=== PATIENT | male | born 1940 ===

== ENCOUNTER 2023-03-22 17:57 | Inpatient (IN) | payer MEDICARE, OTHER ==
[~2023-03-22] VITALS: Ht 182.9 cm; Wt 68.0 kg
[2023-03-22 19:55] LABS: HEMATOCRIT 37.3 % (36.7-47.1); WHITE BLOOD COUNT (AUTO) 3.9 K/uL (3.6-10.2)
[2023-03-22 20:02] LABS: EOSINOPHILS # (AUTO) 0.1 K/uL (0.0-0.7); EOSINOPHILS % (AUTO) 2.6 % (0.0-7.0); HEMOGLOBIN 12.6 g/dL (12.5-16.3); LYMPHOCYTES # (AUTO) 0.6 K/uL (0.8-4.8); LYMPHOCYTES % (AUTO) 14.9 % (20.5-51.5); MEAN CORPUSCULAR HEMOGLOBIN 32.1 uug (23.8-33.4); MEAN CORPUSCULAR HGB CONC 34 g/dL (32.5-36.3); MEAN CORPUSCULAR VOLUME 94.8 fL (73.0-96.2); MONOCYTES # (AUTO) 0.4 K/uL (0.1-1.30); MONOCYTES % (AUTO) 9.5 % (0.0-11.0); NEUTROPHILS # (AUTO) 2.8 K/uL (1.8-8.9); PLATELET COUNT (AUTO) 171 K/uL (152-348); RED BLOOD CELL COUNT(AUTO) 3.93 MIL/uL (4.06-5.63); RED CELL DISTRIBUTION WIDTH 14.3 % (12.1-16.2)
[2023-03-22 20:05] LABS: DIFFERENTIAL COMMENT 1
[2023-03-22 20:06] LABS: ALANINE AMINOTRANSFERASE 16 U/L (16-63); ALBUMIN 3.3 g/dL (3.4-5.0); ALKALINE PHOSPHATASE 68 U/L (50-136); ASPARTATE AMINOTRANSFERASE 5 U/L (15-37); BILIRUBIN,DIRECT 0.2 mg/dL (0.0-0.2); BILIRUBIN,TOTAL 0.6 mg/dL (0.2-1.0); CALCIUM 8.8 mg/dL (8.5-10.1); CARBON DIOXIDE 27 mmol/L (21-32); CHLORIDE 105 mmol/L (98-107); CREATININE 0.8 mg/dL (0.6-1.3); ETHANOL < 3 MG/DL (0-10); GLUCOSE 92 mg/dL (74-106); SODIUM SERUM 141 mmol/L (136-145); TOTAL PROTEIN, SERUM 6.2 g/dL (6.4-8.2); UREA NITROGEN, BLOOD 21 mg/dL (7-18)
[2023-03-22 20:07] LABS: ACETAMINOPHEN < 2.0 ug/mL (10-30)
[2023-03-22] MEDS ORDERED: QUETIAPINE FUMARATE 25 MG TABLET ONE ×2 (21:43→21:46)
[2023-03-22] MEDS ORDERED: QUETIAPINE FUMARATE 25 MG TABLET PO ONE (21:45)
[2023-03-22 22:44] LABS: *BILIRUBIN,URIN NEGATIVE (NEGATIVE); *BLOOD, URINE NEGATIVE (NEGATIVE); *CLARITY,URINE CLEAR (CLEAR); *COLOR,URINE YELLOW (YELLOW); *KETONES,URINE NEGATIVE (NEGATIVE); *PROTEIN,URINE NEGATIVE (NEGATIVE); LEUKOCYTE ESTERASE ,URINE NEGATIVE (NEGATIVE); NITRITE, URINE NEGATIVE (NEGATIVE); UGLUCOSE NEGATIVE (NEGATIVE)
[2023-03-22 23:05] LABS: *AMPHETAMINE, URINE NEGATIVE (NEGATIVE); *BARBITURATE, URINE NEGATIVE (NEGATIVE); *BENZODIAZEPINE, URINE NEGATIVE (NEGATIVE); *CANNABINOID, URINE NEGATIVE (NEGATIVE); *COCCAINE, URINE NEGATIVE (NEGATIVE); *OPIATE, URINE NEGATIVE (NEGATIVE); *PHENCYCLIDINE SCREEN,URINE NEGATIVE (NEGATIVE); FENTANYL, URINE NEGATIVE (NEGATIVE)
[2023-03-23] MEDS ORDERED: LORAZEPAM 0.5 MG TABLET PO ONE (00:15)
[2023-03-23] MEDS ORDERED: LORAZEPAM 1 MG TABLET ONE (00:19)
[2023-03-23] MEDS ORDERED: MEMA10TA PO (01:02)
[2023-03-23] MEDS ORDERED: CHOL100062 PO (01:02)
[2023-03-23] MEDS ORDERED: QUET50TA24 PO (01:02)
[2023-03-23] MEDS ORDERED: RIVA1PAT TD (01:02)
[2023-03-23] MEDS ORDERED: ALLO100T PO (01:02)
[2023-03-23] MEDS ORDERED: PRAM0.253 PO (01:02)
[2023-03-23] MEDS ORDERED: MAGNESIUM HYDROXIDE 30 ML LIQUID UDC PO PRN (02:15)
[2023-03-23] MEDS ORDERED: MAG HYDROX/AL HYDROX/SIMETH 30 ML LIQUID UDC PO PRN (02:15)
[2023-03-23] MEDS ORDERED: BLOOD SUGAR DIAGNOSTIC 1 EACH STRIP VI ONE (02:15)
[2023-03-23] MEDS: LORAZEPAM 0.5 MG TABLET PO PRN ×3 (04:08→22:18)
[2023-03-23] MEDS ORDERED: ROSU10TA29 PO (05:31)
[2023-03-23 09:07] VITALS: BP 106/52; O2SAT 96
[2023-03-23] MEDS: risperiDONE 0.5 MG TABLET PO SCH ×2 (11:25→16:38)
[2023-03-23 15:32] VITALS: BP 113/66; TEMP 98.2; O2SAT 98
[2023-03-23 20:04] VITALS: BP 106/61; TEMP 98.2; O2SAT 98
[2023-03-23] MEDS: ATORVASTATIN 20 MG TABLET PO SCH (21:11)
[2023-03-23] MEDS: PRAMIPEXOLE 0.25 MG TABLET PO SCH (21:11)
[2023-03-23] MEDS: TEMAZEPAM 7.5 MG CAPSULE PO PRN (22:51)
[2023-03-24] MEDS: LORAZEPAM 0.5 MG TABLET PO PRN ×3 (05:22→20:50)
[2023-03-24 07:30] VITALS: BP 158/81; TEMP 97.4; O2SAT 100
[2023-03-24] MEDS: risperiDONE 0.5 MG TABLET PO SCH ×4 (08:16→20:50)
[2023-03-24] MEDS: CHOLECALCIFEROL 1,000 UNIT TABLET PO SCH (08:16)
[2023-03-24] MEDS: ALLOPURINOL 100 MG TABLET PO SCH (08:19)
[2023-03-24 08:37] LABS: THYROID STIMULATING HORMONE 2.789 mIU/mL (0.358-3.740)
[2023-03-24] MEDS: DIVALPROEX SPRINKLE 125 MG CAP.SPRINK PO SCH ×2 (13:08→16:44)
[2023-03-24 16:00] VITALS: BP 133/75; TEMP 97.5; O2SAT 98
[2023-03-24 20:47] VITALS: BP 90/48; TEMP 98; O2SAT 98
[2023-03-24] MEDS: ATORVASTATIN 20 MG TABLET PO SCH (20:50)
[2023-03-24] MEDS: PRAMIPEXOLE 0.25 MG TABLET PO SCH (20:51)
[2023-03-25 07:40] VITALS: BP 139/73; TEMP 97.7; O2SAT 96
[2023-03-25] MEDS: risperiDONE 0.5 MG TABLET PO SCH ×4 (09:11→21:27)
[2023-03-25] MEDS: ALLOPURINOL 100 MG TABLET PO SCH (09:11)
[2023-03-25] MEDS: CHOLECALCIFEROL 1,000 UNIT TABLET PO SCH (09:11)
[2023-03-25] MEDS: DIVALPROEX SPRINKLE 125 MG CAP.SPRINK PO SCH ×3 (09:12→16:55)
[2023-03-25] MEDS: LORAZEPAM 0.5 MG TABLET PO PRN ×2 (11:08→23:47)
[2023-03-25 15:02] VITALS: BP 106/83; TEMP 98.4; O2SAT 95
[2023-03-25 20:05] VITALS: BP 138/78; TEMP 98.2; O2SAT 96
[2023-03-25] MEDS: ATORVASTATIN 20 MG TABLET PO SCH (21:26)
[2023-03-25] MEDS: PRAMIPEXOLE 0.25 MG TABLET PO SCH (21:26)
[2023-03-26 07:59] VITALS: BP 109/77; TEMP 97.8; O2SAT 95
[2023-03-26] MEDS: DIVALPROEX SPRINKLE 125 MG CAP.SPRINK PO SCH ×3 (08:22→16:21)
[2023-03-26] MEDS: LORAZEPAM 0.5 MG TABLET PO PRN ×3 (08:22→20:46)
[2023-03-26] MEDS: CHOLECALCIFEROL 1,000 UNIT TABLET PO SCH (08:22)
[2023-03-26] MEDS: risperiDONE 0.5 MG TABLET PO SCH ×4 (08:22→20:46)
[2023-03-26] MEDS: ALLOPURINOL 100 MG TABLET PO SCH (08:29)
[2023-03-26] MEDS: BENZTROPINE MESYLATE 0.5 MG TABLET PO SCH ×2 (12:23→16:21)
[2023-03-26 15:32] VITALS: BP 112/64; TEMP 98.5; O2SAT 97
[2023-03-26 19:56] VITALS: BP 152/73; TEMP 98; O2SAT 98
[2023-03-26] MEDS: PRAMIPEXOLE 0.25 MG TABLET PO SCH (20:46)
[2023-03-26] MEDS: ATORVASTATIN 20 MG TABLET PO SCH (20:46)
[2023-03-27 07:46] VITALS: BP 149/72; TEMP 98.2; O2SAT 96
[2023-03-27] MEDS: ALLOPURINOL 100 MG TABLET PO SCH (08:07)
[2023-03-27] MEDS: CHOLECALCIFEROL 1,000 UNIT TABLET PO SCH (08:07)
[2023-03-27] MEDS: DIVALPROEX SPRINKLE 125 MG CAP.SPRINK PO SCH ×2 (08:07→17:28)
[2023-03-27] MEDS: risperiDONE 0.5 MG TABLET PO SCH ×4 (08:08→19:52)
[2023-03-27] MEDS: BENZTROPINE MESYLATE 0.5 MG TABLET PO SCH ×2 (08:08→17:28)
[2023-03-27 15:19] VITALS: BP 146/63; TEMP 98; O2SAT 96
[2023-03-27] MEDS: PRAMIPEXOLE 0.25 MG TABLET PO SCH (19:51)
[2023-03-27] MEDS: ACETAMINOPHEN 325 MG TABLET PO PRN (19:51)
[2023-03-27] MEDS: LORAZEPAM 0.5 MG TABLET PO PRN (19:52)
[2023-03-27] MEDS: ATORVASTATIN 20 MG TABLET PO SCH (19:52)
[2023-03-27] MEDS: REMEDY ESSENTIAL ZINC PASTE 113 GM TOP SCH (19:54)
[2023-03-27 20:00] VITALS: BP 139/60; TEMP 99.8; O2SAT 96
[2023-03-27 21:05] VITALS: TEMP 98.2
[2023-03-28] MEDS: LORAZEPAM 0.5 MG TABLET PO PRN ×3 (05:23→20:05)
[2023-03-28] MEDS: ACETAMINOPHEN 325 MG TABLET PO PRN (05:23)
[2023-03-28 08:41] VITALS: BP 117/57; TEMP 97.9; O2SAT 99
[2023-03-28] MEDS: DIVALPROEX SPRINKLE 125 MG CAP.SPRINK PO SCH ×2 (09:08→17:22)
[2023-03-28] MEDS: risperiDONE 0.5 MG TABLET PO SCH ×4 (09:08→20:05)
[2023-03-28] MEDS: CHOLECALCIFEROL 1,000 UNIT TABLET PO SCH (09:08)
[2023-03-28] MEDS: BENZTROPINE MESYLATE 0.5 MG TABLET PO SCH ×2 (09:09→17:22)
[2023-03-28] MEDS: ALLOPURINOL 100 MG TABLET PO SCH (09:09)
[2023-03-28] MEDS: REMEDY ESSENTIAL ZINC PASTE 113 GM TOP SCH ×2 (09:11→20:05)
[2023-03-28 16:19] VITALS: BP 156/95; TEMP 98; O2SAT 98
[2023-03-28 19:50] VITALS: BP 134/66; TEMP 97.8; O2SAT 98
[2023-03-28] MEDS: ATORVASTATIN 20 MG TABLET PO SCH (20:05)
[2023-03-28] MEDS: PRAMIPEXOLE 0.25 MG TABLET PO SCH (20:05)
[2023-03-29] MEDS: BENZTROPINE MESYLATE 0.5 MG TABLET PO SCH ×3 (02:21→16:12)
[2023-03-29] MEDS: TEMAZEPAM 7.5 MG CAPSULE PO PRN (02:25)
[2023-03-29 07:49] VITALS: BP 161/65; TEMP 98; O2SAT 96
[2023-03-29] MEDS: DIVALPROEX SPRINKLE 125 MG CAP.SPRINK PO SCH ×2 (09:18→16:12)
[2023-03-29] MEDS: risperiDONE 0.5 MG TABLET PO SCH ×4 (09:18→20:40)
[2023-03-29] MEDS: REMEDY ESSENTIAL ZINC PASTE 113 GM TOP SCH ×2 (09:18→20:41)
[2023-03-29] MEDS: CHOLECALCIFEROL 1,000 UNIT TABLET PO SCH (09:18)
[2023-03-29] MEDS: ALLOPURINOL 100 MG TABLET PO SCH (09:19)
[2023-03-29 16:16] VITALS: BP 104/51; TEMP 98; O2SAT 96
[2023-03-29 19:41] VITALS: BP 148/71; TEMP 98.1; O2SAT 95
[2023-03-29] MEDS: ATORVASTATIN 20 MG TABLET PO SCH (20:39)
[2023-03-29] MEDS: PRAMIPEXOLE 0.25 MG TABLET PO SCH (20:39)
[2023-03-29] MEDS: TEMAZEPAM 7.5 MG CAPSULE PO SCH (20:41)
[2023-03-30 07:50] VITALS: BP 121/61; TEMP 98; O2SAT 96
[2023-03-30] MEDS: BENZTROPINE MESYLATE 0.5 MG TABLET PO SCH ×3 (08:00→16:50)
[2023-03-30] MEDS: CHOLECALCIFEROL 1,000 UNIT TABLET PO SCH (08:00)
[2023-03-30] MEDS: DIVALPROEX SPRINKLE 125 MG CAP.SPRINK PO SCH ×2 (08:00→16:50)
[2023-03-30] MEDS: risperiDONE 0.5 MG TABLET PO SCH ×4 (08:00→20:42)
[2023-03-30] MEDS: ALLOPURINOL 100 MG TABLET PO SCH (08:08)
[2023-03-30] MEDS: REMEDY ESSENTIAL ZINC PASTE 113 GM TOP SCH ×2 (10:38→20:43)
[2023-03-30] MEDS: busPIRone 5 MG TABLET PO SCH ×2 (12:47→16:50)
[2023-03-30 15:45] VITALS: BP 124/64; TEMP 98; O2SAT 96
[2023-03-30 19:59] VITALS: BP 118/62; TEMP 98.2; O2SAT 96
[2023-03-30] MEDS: ATORVASTATIN 20 MG TABLET PO SCH (20:42)
[2023-03-30] MEDS: PRAMIPEXOLE 0.25 MG TABLET PO SCH (20:42)
[2023-03-30] MEDS: TEMAZEPAM 7.5 MG CAPSULE PO SCH (20:42)
[2023-03-31 07:44] VITALS: BP 112/55; TEMP 98.2; O2SAT 98
[2023-03-31] MEDS: busPIRone 5 MG TABLET PO SCH ×3 (09:06→17:16)
[2023-03-31] MEDS: BENZTROPINE MESYLATE 0.5 MG TABLET PO SCH ×3 (09:06→17:16)
[2023-03-31] MEDS: risperiDONE 0.5 MG TABLET PO SCH ×4 (09:06→20:25)
[2023-03-31] MEDS: CHOLECALCIFEROL 1,000 UNIT TABLET PO SCH (09:06)
[2023-03-31] MEDS: DIVALPROEX SPRINKLE 125 MG CAP.SPRINK PO SCH ×2 (09:07→17:16)
[2023-03-31] MEDS: REMEDY ESSENTIAL ZINC PASTE 113 GM TOP SCH ×2 (09:08→20:26)
[2023-03-31] MEDS: ALLOPURINOL 100 MG TABLET PO SCH (09:09)
[2023-03-31 15:17] VITALS: BP 108/69; TEMP 98.2; O2SAT 98
[2023-03-31 20:00] VITALS: BP 140/82; TEMP 98.6; O2SAT 98
[2023-03-31] MEDS: PRAMIPEXOLE 0.25 MG TABLET PO SCH (20:25)
[2023-03-31] MEDS: ATORVASTATIN 20 MG TABLET PO SCH (20:25)
[2023-03-31] MEDS: TEMAZEPAM 7.5 MG CAPSULE PO SCH (20:25)
[2023-04-01 08:00] VITALS: BP 140/74; TEMP 98.3; O2SAT 98
[2023-04-01] MEDS: DIVALPROEX SPRINKLE 125 MG CAP.SPRINK PO SCH ×2 (09:34→17:40)
[2023-04-01] MEDS: CHOLECALCIFEROL 1,000 UNIT TABLET PO SCH (09:35)
[2023-04-01] MEDS: ALLOPURINOL 100 MG TABLET PO SCH (09:35)
[2023-04-01] MEDS: BENZTROPINE MESYLATE 0.5 MG TABLET PO SCH ×3 (09:35→17:40)
[2023-04-01] MEDS: risperiDONE 0.5 MG TABLET PO SCH ×4 (09:35→21:38)
[2023-04-01] MEDS: busPIRone 5 MG TABLET PO SCH ×3 (09:35→17:40)
[2023-04-01] MEDS: REMEDY ESSENTIAL ZINC PASTE 113 GM TOP SCH ×2 (09:36→21:39)
[2023-04-01 16:04] VITALS: BP 103/69; TEMP 98; O2SAT 98
[2023-04-01 20:09] VITALS: BP 108/61; TEMP 98.2; O2SAT 98
[2023-04-01] MEDS: TEMAZEPAM 7.5 MG CAPSULE PO SCH (21:37)
[2023-04-01] MEDS: ATORVASTATIN 20 MG TABLET PO SCH (21:37)
[2023-04-01] MEDS: PRAMIPEXOLE 0.25 MG TABLET PO SCH (21:39)
[2023-04-02 08:02] VITALS: BP 140/84; TEMP 97.8; O2SAT 100
[2023-04-02] MEDS: CHOLECALCIFEROL 1,000 UNIT TABLET PO SCH (09:08)
[2023-04-02] MEDS: busPIRone 5 MG TABLET PO SCH ×3 (09:08→17:43)
[2023-04-02] MEDS: ALLOPURINOL 100 MG TABLET PO SCH (09:08)
[2023-04-02] MEDS: DIVALPROEX SPRINKLE 125 MG CAP.SPRINK PO SCH ×2 (09:08→17:42)
[2023-04-02] MEDS: risperiDONE 0.5 MG TABLET PO SCH ×4 (09:08→20:34)
[2023-04-02] MEDS: REMEDY ESSENTIAL ZINC PASTE 113 GM TOP SCH ×2 (09:09→21:11)
[2023-04-02] MEDS: BENZTROPINE MESYLATE 0.5 MG TABLET PO SCH ×3 (09:09→17:43)
[2023-04-02 15:32] VITALS: BP 119/77; TEMP 97.9; O2SAT 100
[2023-04-02 20:09] VITALS: BP 139/57; TEMP 98.2; O2SAT 98
[2023-04-02] MEDS: TEMAZEPAM 7.5 MG CAPSULE PO SCH (20:34)
[2023-04-02] MEDS: ATORVASTATIN 20 MG TABLET PO SCH (20:34)
[2023-04-02] MEDS: PRAMIPEXOLE 0.25 MG TABLET PO SCH (20:35)
[2023-04-03 08:21] VITALS: BP 124/60; TEMP 98.1; O2SAT 97
[2023-04-03] MEDS: busPIRone 5 MG TABLET PO SCH ×3 (08:29→17:00)
[2023-04-03] MEDS: CHOLECALCIFEROL 1,000 UNIT TABLET PO SCH (08:29)
[2023-04-03] MEDS: risperiDONE 0.5 MG TABLET PO SCH ×4 (08:29→20:58)
[2023-04-03] MEDS: DIVALPROEX SPRINKLE 125 MG CAP.SPRINK PO SCH ×2 (08:29→16:59)
[2023-04-03] MEDS: BENZTROPINE MESYLATE 0.5 MG TABLET PO SCH ×3 (08:29→16:59)
[2023-04-03] MEDS: ALLOPURINOL 100 MG TABLET PO SCH (08:30)
[2023-04-03] MEDS: REMEDY ESSENTIAL ZINC PASTE 113 GM TOP SCH ×2 (08:32→20:58)
[2023-04-03 16:11] VITALS: BP 113/82; TEMP 98; O2SAT 97
[2023-04-03] MEDS: LORAZEPAM 0.5 MG TABLET PO PRN (16:59)
[2023-04-03 20:39] VITALS: BP 152/64; TEMP 98; O2SAT 98
[2023-04-03] MEDS: TEMAZEPAM 7.5 MG CAPSULE PO SCH (20:56)
[2023-04-03] MEDS: PRAMIPEXOLE 0.25 MG TABLET PO SCH (20:57)
[2023-04-03] MEDS: ATORVASTATIN 20 MG TABLET PO SCH (20:57)
[2023-04-03] MEDS ORDERED: busPIRone 5 MG TABLET PO SCH (21:00)
[2023-04-04 07:57] LABS: BASOPHILS % (AUTO) 0.4 % (0.0-2.0); EOSINOPHILS % (AUTO) 0.6 % (0.0-7.0); HEMATOCRIT 44.7 % (36.7-47.1); HEMOGLOBIN 14.9 g/dL (12.5-16.3); LYMPHOCYTES # (AUTO) 0.6 K/uL (0.8-4.8); LYMPHOCYTES % (AUTO) 10.5 % (20.5-51.5); MEAN CORPUSCULAR HEMOGLOBIN 32.3 uug (23.8-33.4); MEAN CORPUSCULAR HGB CONC 33 g/dL (32.5-36.3); MEAN CORPUSCULAR VOLUME 97.2 fL (73.0-96.2); MONOCYTES # (AUTO) 0.6 K/uL (0.1-1.30); MONOCYTES % (AUTO) 10.1 % (0.0-11.0); NEUTROPHILS # (AUTO) 4.8 K/uL (1.8-8.9); NEUTROPHILS % (AUTO) 78.4 % (38.5-71.5); PLATELET COUNT (AUTO) 279 K/uL (152-348); RED CELL DISTRIBUTION WIDTH 13.8 % (12.1-16.2); WHITE BLOOD COUNT (AUTO) 6.1 K/uL (3.6-10.2)
[2023-04-04 08:08] VITALS: BP 137/76; TEMP 97.9; O2SAT 96
[2023-04-04 08:13] LABS: DIFFERENTIAL COMMENT 1
[2023-04-04 08:27] LABS: ALBUMIN 3.4 g/dL (3.4-5.0); BILIRUBIN,TOTAL 0.9 mg/dL (0.2-1.0); CALCIUM 9.7 mg/dL (8.5-10.1); CREATININE 0.8 mg/dL (0.6-1.3); POTASSIUM 4.7 mmol/L (3.5-5.1); TOTAL PROTEIN, SERUM 7.2 g/dL (6.4-8.2)
[2023-04-04] MEDS: risperiDONE 0.5 MG TABLET PO SCH ×3 (09:03→17:08)
[2023-04-04] MEDS: busPIRone 5 MG TABLET PO SCH ×3 (09:03→17:08)
[2023-04-04] MEDS: BENZTROPINE MESYLATE 0.5 MG TABLET PO SCH ×3 (09:03→17:08)
[2023-04-04] MEDS: CHOLECALCIFEROL 1,000 UNIT TABLET PO SCH (09:03)
[2023-04-04] MEDS: DIVALPROEX SPRINKLE 125 MG CAP.SPRINK PO SCH ×2 (09:03→17:09)
[2023-04-04] MEDS: ALLOPURINOL 100 MG TABLET PO SCH (09:04)
[2023-04-04] MEDS: REMEDY ESSENTIAL ZINC PASTE 113 GM TOP SCH (09:04)
[2023-04-04 16:17] VITALS: BP 130/74; TEMP 98.1; O2SAT 96
== END 2023-04-04 14:53 | disposition short-term general hospital (02) | DRG 885 ==
LOC: ER 17:57 → UNDOADMIN 03-23 00:23 → GPS 03-23 00:23 → ER 03-23 01:15 → UNDODISIN 04-04 18:36
PROVIDERS: ADMIT Psychiatry & Neurology Psychosomatic Medicine; ATTEND Student in an Organized Health Care Education/Training Program
DX: F29 Unspecified psychosis not due to a substance or known physiological condition (principal); E44.1 Mild protein-calorie malnutrition; F03.93 Unspecified dementia, unspecified severity, with mood disturbance; F39 Unspecified mood [affective] disorder; Z79.899 Other long term (current) drug therapy; E78.5 Hyperlipidemia, unspecified; E86.0 Dehydration; G62.9 Polyneuropathy, unspecified; R79.89 Other specified abnormal findings of blood chemistry; M10.9 Gout, unspecified
CPT/HCPCS: 36415; 80164; 84443; 85025; G0480; J8499

== ENCOUNTER 2023-04-04 19:19 | Inpatient (IN) | payer MEDICARE, OTHER ==
[~2023-04-04] VITALS: Ht 177.8 cm; Wt 57.8 kg
[~2023-04-04 19:19] MED LIST: ALLO100T PO; CHOL100062 PO; PRAM0.253 PO; ROSU10TA29 PO
[2023-04-04 20:00] VITALS: BP 144/101; TEMP 97.8; O2SAT 91
[2023-04-04] MEDS ORDERED: MAGNESIUM HYDROXIDE 30 ML LIQUID UDC PO PRN (23:15)
[2023-04-04] MEDS ORDERED: REMEDY ESSENTIAL ZINC PASTE 113 GM TP PRN (23:15)
[2023-04-04] MEDS ORDERED: ACETAMINOPHEN 325 MG TABLET PO PRN (23:15)
[2023-04-04] MEDS ORDERED: ONDANSETRON 4 MG/2 ML VIAL IV PRN (23:15)
[2023-04-04] MEDS ORDERED: IV NS 1000 ML 1,000 ML IV PRN (23:15)
[2023-04-04] MEDS ORDERED: ZOLPIDEM 5 MG TABLET PO PRN (23:15)
[2023-04-05] VITALS: BP 132/81; TEMP 98.1; O2SAT 100
[2023-04-05] MEDS: HALOPERIDOL LACTATE 5 MG/1 ML VIAL IM PRN ×2 (00:40→06:23)
[2023-04-05 03:54] VITALS: BP 109/61; TEMP 97.2; O2SAT 98
[2023-04-05 06:54] LABS: BASOPHILS % (AUTO) 0.3 % (0.0-2.0); EOSINOPHILS % (AUTO) 0.4 % (0.0-7.0); HEMATOCRIT 43.3 % (36.7-47.1); HEMOGLOBIN 14.6 g/dL (12.5-16.3); LYMPHOCYTES # (AUTO) 0.6 K/uL (0.8-4.8); LYMPHOCYTES % (AUTO) 8.7 % (20.5-51.5); MEAN CORPUSCULAR HEMOGLOBIN 32.6 uug (23.8-33.4); MEAN CORPUSCULAR HGB CONC 34 g/dL (32.5-36.3); MEAN CORPUSCULAR VOLUME 96.5 fL (73.0-96.2); MONOCYTES # (AUTO) 0.9 K/uL (0.1-1.30); NEUTROPHILS # (AUTO) 5.2 K/uL (1.8-8.9); NEUTROPHILS % (AUTO) 77.6 % (38.5-71.5); PLATELET COUNT (AUTO) 285 K/uL (152-348); RED BLOOD CELL COUNT(AUTO) 4.49 MIL/uL (4.06-5.63); RED CELL DISTRIBUTION WIDTH 14.1 % (12.1-16.2); WHITE BLOOD COUNT (AUTO) 6.7 K/uL (3.6-10.2)
[2023-04-05 07:10] LABS: DIFFERENTIAL COMMENT 1
[2023-04-05 07:21] LABS: CALCIUM 9.5 mg/dL (8.5-10.1); CARBON DIOXIDE 28 mmol/L (21-32); CHLORIDE 114 mmol/L (98-107); CHOLESTEROL 118 mg/dL (<200); CREATININE 0.9 mg/dL (0.6-1.3); GLUCOSE 99 mg/dL (74-106); HDL CHOLESTEROL 40 mg/dL (40-60); MAGNESIUM 2.3 mg/dL (1.8-2.4); PHOSPHOROUS 4.6 mg/dL (2.5-4.9); POTASSIUM 4.7 mmol/L (3.5-5.1); SODIUM SERUM 150 mmol/L (136-145); TRIGLYCERIDES 60 MG/DL (30-150); UREA NITROGEN, BLOOD 48 mg/dL (7-18)
[2023-04-05] MEDS ORDERED: PANTOPRAZOLE SODIUM 40 MG VIAL IV SCH (09:00)
[2023-04-05 11:42] VITALS: BP 149/84; TEMP 97.6; O2SAT 100
[2023-04-05] MEDS ORDERED: DIVALPROEX 250 MG TABLET.DR PO SCH (13:00)
[2023-04-05] MEDS ORDERED: busPIRone 5 MG TABLET PO SCH (13:00)
== END 2023-04-05 13:38 | disposition home or self-care (01) | DRG 640 ==
LOC: MEDSURG3 19:19 → TELE3 20:58 → MEDSURG3 04-05 10:31
PROVIDERS: ADMIT Nurse Practitioner Acute Care; ATTEND Nurse Practitioner Acute Care
DX: E86.0 Dehydration (principal); G93.41 Metabolic encephalopathy; Z68.1 Body mass index [BMI] 19.9 or less, adult; F03.B2 Unspecified dementia, moderate, with psychotic disturbance; F05 Delirium due to known physiological condition; E44.0 Moderate protein-calorie malnutrition; F03.B11 Unspecified dementia, moderate, with agitation; R62.7 Adult failure to thrive; E87.0 Hyperosmolality and hypernatremia; E78.5 Hyperlipidemia, unspecified; M10.9 Gout, unspecified; R53.1 Weakness; R79.89 Other specified abnormal findings of blood chemistry
CPT/HCPCS: 36415; 83735; 84100; 85025; C1758; C9113; G0378; J1630; J3490; J7040